=== PATIENT | female | born 1950 | race Two or more races ===

== ENCOUNTER 2019-05-23 19:34 | Emergency (ER) | payer MEDICAID, MEDICARE ==
[~2019-05-23] VITALS: Ht 157.5 cm; Wt 66.2 kg
[2019-05-23 23:43] VITALS: BP 132/76
== END 2019-05-24 00:07 | disposition home or self-care (01) ==
LOC: ER 19:34
DX: S00.83XA Contusion of other part of head, initial encounter (principal); Z90.49 Acquired absence of other specified parts of digestive tract; W01.0XXA Fall on same level from slipping, tripping and stumbling without subsequent striking against object, initial encounter; Y93.89 Activity, other specified; Y92.098 Other place in other non-institutional residence as the place of occurrence of the external cause; Y99.8 Other external cause status
CPT/HCPCS: 70450; 72125